=== PATIENT | female | born 1985 | race Caucasian/White ===

== ENCOUNTER 2017-03-30 13:10 | Emergency (ER) | payer BC ==
[2017-03-30 13:57] VITALS: BP 120/72
--- NOTE | 2017-03-30 14:02 | UC ---
Respiratory Complaint HPI - HPI Summary HPI Summary: pt c/o sudden onset of non productive cough and occasional sob X 2 days. Denies fever, chills or hemoptysis. - History of Current Complaint Chief Complaint: UCRespiratory Stated Complaint: COUGH Time Seen by Provider: 03/30/17 13:38 Hx Obtained From: Patient Hx Last Menstrual Period: 03/25/17 ?: No Onset/Duration: Sudden Onset, Lasting Days, Still Present Timing: Intermittent Episodes Severity Initially: Mild Severity Currently: Mild Character: Cough: Nonproductive Aggravating Factors: Deep Breaths Associated Signs And Symptoms: Positive: Negative - Risk Factors Pulmonary Embolism Risk Factors: Negative Cardiac Risk Factors: Negative Pseudomonas Risk Factors: Negative Tuberculosis Risk Factors: Negative - Allergies/Home Medications Allergies/Adverse Reactions: Allergies Allergy/AdvReac Type Severity Reaction Status Date / Time No Known Allergies Allergy Verified 03/30/17 13:51 Home Medications: Home Medications ALPRAZolam TAB* [Xanax TAB*] 0.25 mg PO TID PRN 03/30/17 [History Confirmed ] PARoxetine HCL TAB* [Paxil TAB*] 10 mg PO DAILY 03/30/17 [History Confirmed ] SUMAtriptan TAB* [Imitrex TAB*] 50 mg PO SEE INSTRUCTIONS PRN 03/30/17 [History Confirmed 03/30/17] PMH/Surg Hx/FS Hx/Imm Hx Previously Healthy: Yes - Surgical History Surgical History: None - Family History Known Family History: Positive: Cardiac Disease - Social History Occupation: Employed Full-time Lives: With Family Alcohol Use: Occasionally Substance Use Type: None Smoking Status (MU): Never Smoked Tobacco Type: Cigarettes Amount Used/How Often: 3 cigs per month Have You Smoked in the Last Year: No Household Exposure Type: Cigarettes - Immunization History Most Recent Influenza Vaccination: not this season Vaccination Up to Date: No Review of Systems Constitutional: Negative Skin: Negative Eyes: Negative ENT: Negative Respiratory: Shortness Of Breath, Cough Cardiovascular: Negative Gastrointestinal: Negative Genitourinary: Negative Motor: Negative Neurovascular: Negative Musculoskeletal: Negative Neurological: Negative Psychological: Negative Is Patient Immunocompromised?: No All Other Systems Reviewed And Are Negative: Yes Physical Exam Triage Information Reviewed: Yes Appearance: Well-Appearing Vital Signs: Initial Vital Signs Temp 98.1 F 03/30/17 13:53 Pulse 92 03/30/17 13:53 Resp 20 03/30/17 13:53 BP 120/72 03/30/17 13:53 Pulse Ox 100 03/30/17 13:53 Vital Signs Reviewed: Yes Eye Exam: Normal ENT Exam: Normal Dental Exam: Normal Neck exam: Normal Respiratory Exam: Normal Respiratory: Positive: Normal breath sounds Cardiovascular Exam: Normal Musculoskeletal Exam: Normal Neurological Exam: Normal Psychological Exam: Normal Skin Exam: Normal UC Diagnostic Evaluation - Laboratory O2 Sat by Pulse Oximetry: 100 Respiratory Course/Dx - Differential Dx/Diagnosis Differential Diagnosis/HQI/PQRI: Bronchitis, Pulmonary Embolism, Other - reactive airway. Provider Diagnoses: reactive airway. URI. cough Discharge - Discharge Plan Condition: Stable Disposition: HOME Prescriptions: Albuterol HFA INHALER* [Ventolin HFA Inhaler*] 1 - 2 puff INH Q6H PRN #1 mdi PRN Reason: Sob/Wheezing Benzonatate CAP* [Tessalon 100 MG CAP*] 100 mg PO Q8H PRN #30 cap PRN Reason: Cough predniSONE TAB* [Deltasone TAB*] 30 mg PO DAILY #12 tab Patient Education Materials: Reactive Airways Disease (ED) Referrals: Maria Fernanda Nolan [Primary Care Provider] - 04/06/17 Additional Instructions: Please follow up with your PCP as scheduled on 04/06/17.
== END 2017-03-30 14:10 | disposition home or self-care (01) ==
LOC: UCCORT 13:10
DX: J06.9 Acute upper respiratory infection, unspecified (principal); R05 Cough; J45.909 Unspecified asthma, uncomplicated; Z77.22 Contact with and (suspected) exposure to environmental tobacco smoke (acute) (chronic)
CPT/HCPCS: 99202; G0463

== ENCOUNTER 2019-02-14 09:25 | Emergency (ER) | payer OTHER ==
[2019-02-14 11:14] VITALS: BP 105/52
--- NOTE | 2019-02-14 11:19 | UC ---
Throat Pain/Nasal [place] HPI - HPI Summary HPI Summary: 33-year-old female with a history of migraine headaches. Her most recent being 1 year ago. She has been bothered by allergies symptoms over the past 2 weeks and on Sunday she had a migraine which she describes as her typical migraine. She took Imitrex with minimal relief and then went to bed. The migraine has improved and she states over the past few days she's just had more of a dull headache. She denies any further vomiting. She occasionally feels dizzy like the room is spinning but not feeling like she is going to pass out. She denies any fever or chills. She does have sinus pressure and congestion although she has not been blowing her nose. She states the headache was not a sudden onset and it is not the worst headache she's ever had. She states this is her typical migraine. - History of Current Complaint Chief Complaint: UCHeadache Stated Complaint: SINUS COMPLAINT Time Seen by Provider: 02/14/19 11:18 Hx Obtained From: Patient Hx Last Menstrual Period: "2 weeks ago" ?: No Onset/Duration: Gradual Onset Severity: Mild Pain Intensity: 3 Cough: None Associated Signs & Symptoms: Positive: Sinus Discomfort - Allergies/Home Medications Allergies/Adverse Reactions: Allergies Allergy/AdvReac Type Severity Reaction Status Date / Time No Known Allergies Allergy Verified 02/14/19 11:14 Home Medications: Home Medications Fluticasone NASAL SPRAY 50MCG* [Flonase NASAL SPRAY 50MCG*] 2 spray BOTH NARES DAILY 02/14/19 [History Confirmed 02/14/19] PMH/Surg Hx/FS Hx/Imm Hx Previously Healthy: Yes Neurological History: Migraine - Surgical History Surgical History: None - Family History Known Family History: Positive: Cardiac Disease - Social History Occupation: Employed Full-time Lives: With Family Alcohol Use: Occasionally Substance Use Type: None Smoking Status (MU): Former Smoker Type: Cigarettes Amount Used/How Often: 3 cigs per month Have You Smoked in the Last Year: No When Did the Patient Quit Smoking/Using Tobacco: 2008 Household Exposure Type: Cigarettes - Immunization History Most Recent Influenza Vaccination: not this season Vaccination Up to Date: No Review of Systems All Other Systems Reviewed And Are Negative: Yes ENT: Positive: Sinus Pain/Tenderness Neurological: Positive: Headache - Patient describes headache as a dull headache. It was not a sudden onset headache nor was it the worst she's ever had in her life. Is Patient Immunocompromised?: No Physical Exam Triage Information Reviewed: Yes Appearance: Well-Appearing, No Pain Distress, Well-Nourished Vital Signs: Initial Vital Signs Temp 97.7 F 02/14/19 11:06 Pulse 71 02/14/19 11:06 Resp 18 02/14/19 11:06 BP 105/52 02/14/19 11:06 Pulse Ox 99 02/14/19 11:06 Vital Signs Reviewed: Yes Eyes: Positive: Conjunctiva Clear - PERRLA, EOMI, negative eye drift ENT: Positive: Hearing grossly normal, Pharynx normal, TMs normal, Sinus tenderness - Tenderness on palpation over the maxillary and frontal sinuses bilaterally., Uvula midline Neck: Positive: Supple, Nontender, No Lymphadenopathy Respiratory: Positive: Lungs clear, Normal breath sounds, No respiratory distress, No accessory muscle use Cardiovascular: Positive: RRR, No Murmur, Pulses Normal, Brisk Capillary Refill Abdomen Description: Positive: Nontender, No Organomegaly, Soft. Negative: CVA Tenderness (R), CVA Tenderness (L), Hepatomegaly, Splenomegaly Bowel Sounds: Positive: Present Musculoskeletal: Positive: Strength Intact, ROM Intact, Other: - Full range of motion, Nontender, Good Arm and Leg Strength against Resistance. Good Peripheral Pulses Neuro Sensation and Capillary Refill. Neurological: Positive: Alert, Muscle Tone Normal - Cranial nerves II through XII are intact, good finger to nose bilaterally, normal dystidiokinesis, Romberg negative, good heel-to-toe forward and backward bilaterally, good heel- to-mejia bilaterally. Psychological Exam: Normal Skin Exam: Normal Throat Pain/Nasal Course/Dx - Course Course Of Treatment: At this point in time I feel this may be a sinus infection due to an increase in her allergy symptoms over the past 2 weeks followed by the migraine headache which she states is not the worst she's ever had nor does she states that it was a sudden onset, it was more gradual. I spoke with the patient and her mother brought worsening symptoms and went to go to the emergency room if she has any worsening headache, vomiting or change in normal mental status. The patient feels this is more than likely a sinus infection therefore been treated with amoxicillin 875 mg by mouth twice a day 10 days with a definite follow-up with her primary care provider early next week if no improvement and to go to the emergency room this weekend if any worsening symptoms. The patient is agreeable to this plan of action. - Differential Dx/Diagnosis Provider Diagnosis: Sinusitis Discharge ED - Sign-Out/Discharge Documenting (check all that apply): Patient Departure All imaging exams completed and their final reports reviewed: No Studies - Discharge Plan Condition: Good Disposition: HOME Prescriptions: Amoxicillin PO (*) [Amoxicillin 875 MG (*)] 875 mg PO BID 10 Days #20 tab Patient Education Materials: Sinusitis (ED) Referrals: Tabihta Henley PA [Primary Care Provider] - Additional Instructions: Definite follow-up with your primary care provider early next week if no improvement in symptoms. Go to the nearest emergency room if you develop worsening headache, vomiting, change in normal mental status or any further concerns. - Billing Disposition and Condition Condition: GOOD Disposition: Home
== END 2019-02-14 11:39 | disposition home or self-care (01) ==
LOC: UCCORT 09:25
DX: J32.9 Chronic sinusitis, unspecified (principal); Z87.891 Personal history of nicotine dependence
CPT/HCPCS: 99212; G0463